=== PATIENT | male | born 1970 | race Caucasian/White ===

== ENCOUNTER 2020-01-07 03:17 | Emergency (ER) | payer OTHER ==
[~2020-01-07] VITALS: Ht 180.3 cm; Wt 72.6 kg
[~2020-01-07 03:17] MED LIST: AMOCLA875 PO; CEPH500 PO; CITA20; CITA20 PO; CODBUTACEC; DOCU100 PO; GABA300; HYDACE25S PR; HYDACE5 PO; HYDCHL12.5; HYDR25SUP PR; IBUP400 PO; IBUP800 PO; LISHYD1012 PO; LISI5; MECL25 PO; NAPR500 PO; OXYACE5T PO; PREG25 PO; SERT25 PO; TRAM50 PO; [UNRECOGNIZED DRUG - REMARK]; [UNRECOGNIZED DRUG - REMARK] PO
[2020-01-07] MEDS ORDERED: HYDROCODONE-AC1 EAC1 PO (03:38)
[2020-01-07] MEDS ORDERED: Roxicodone5 MG PO (05:00)
== END 2020-01-07 05:26 | disposition home or self-care (01) ==
LOC: ER 03:17
DX: S02.66XA Fracture of symphysis of mandible, initial encounter for closed fracture (principal); S02.601A Fracture of unspecified part of body of right mandible, initial encounter for closed fracture; S01.01XA Laceration without foreign body of scalp, initial encounter; S50.01XA Contusion of right elbow, initial encounter; I11.0 Hypertensive heart disease with heart failure; I50.9 Heart failure, unspecified; F17.200 Nicotine dependence, unspecified, uncomplicated; W22.8XXA Striking against or struck by other objects, initial encounter
CPT/HCPCS: 12001; 70450; 70486; 72125; 99284-25; A9270